=== PATIENT | male | born 1935 | race Caucasian/White ===

== ENCOUNTER 2021-10-29 00:18 | Day surgery (SDC) | payer MEDICARE, SELFPAY ==
[2021-10-17 14:48] VITALS: BMI 22.4
--- NOTE | 2021-10-28 13:40 | WPDANESEPP ---
Anes - Eval Pre Procedure Procedure: Operation Date: 10/29/21 14:00 Proposed Procedures p Colonoscopy - Clif Garrison MD Date/Time: 10/28/21 13:40 Pre Op Diagnosis: diarrhea Patient Data Age: 86 Gender: M Height: 1.68 m Weight: 63 kg Allergies Allergy/AdvReac Type Severity Reaction Status Date / Time hydrocodone Allergy Unknown unknown Verified 10/17/21 14:42 venom-honey bee Allergy Unknown Unknown Verified 10/17/21 14:42 venom-wasp Allergy Unknown unknown Verified 10/17/21 14:42 Home Medications Medication Instructions Recorded Confirmed Type albuterol sulfate 90 mcg/actuation 2 puff INHALATION .4-6 PRN gm 09/15/19 10/17/21 History aerosol inhaler amlodipine 10 mg tablet 10 mg PO DAILY 09/15/19 10/17/21 History aspirin 81 mg tablet,delayed 81 mg PO DAILY 09/15/19 10/17/21 History release atorvastatin 20 mg tablet 20 mg PO DAILY 09/15/19 10/17/21 History budesonide-formoterol HFA 160 2 puff INHALATION Q12H 09/15/19 10/17/21 History mcg-4.5 mcg/actuation aerosol inhaler epinephrine 0.3 mg/0.3 mL 0.3 mg IM ONCE 09/15/19 10/17/21 History injection, auto-injector isosorbide mononitrate 60 mg 60 mg PO DAILY 09/15/19 10/17/21 History tablet,extended release 24 hr lisinopril 40 mg tablet 40 mg PO DAILY 09/15/19 10/17/21 History metoprolol succinate 25 mg 25 mg PO DAILY 09/15/19 10/17/21 History tablet,extended release 24 hr tamsulosin 0.4 mg capsule 0.4 mg PO DAILY #90 cap 05/02/20 10/17/21 Rx omeprazole 40 mg capsule,delayed 40 mg PO DAILY #90 cap 07/18/20 10/17/21 Rx release finasteride 5 mg tablet 5 mg PO DAILY #90 tablet 11/28/20 10/17/21 Rx nitroglycerin 0.4 mg sublingual 0.4 mg SUBLINGUAL Q5M PRN #20 05/11/21 10/17/21 Rx tablet tablet Patient hx anesthesia problems: none Family hx anesthesia problems: none Results Review: All pre-operative results and documents have been reviewed as part of the pre-operative evaluation. [facility] Past Medical History Medical History (Updated 10/28/21 @ 13:39 by Alea Jane CRNA) Abdominal aneurysm Accelerated essential hypertension Cataracts, bilateral COPD (chronic obstructive pulmonary disease) Hyperlipidemia Lung cancer Myocardial infarction Tobacco abuse quit 2010 Surgical History Surgical History (Updated 10/28/21 @ 13:40 by Alea Jane CRNA) History of AAA (abdominal aortic aneurysm) repair 2007 at [facility] History of coronary angioplasty 2010 History of hemorrhoidectomy Family History Family History Mother Acute myocardial infarction, Onset Age: 83 Patient's mother is Father Patient's father is Acute myocardial infarction Sibling Patient's sister is Acute myocardial infarction Other Family history of cardiovascular disease Family history of lupus erythematosus Family history of primary malignant neoplasm of liver Hypertension Social History Social History Smoking packs per day: 1 Smoking cigarettes per day: 20.0 Years smoked: 74 Smoking pack-years: 74.00 Smoking status: Current every day smoker Tobacco type: cigarettes Second hand tobacco smoke exposure: No Smoking end date: 08/25/10 Alcohol intake: never Substance use: never Substance use type: does not use Living arrangements: with family Spiritual care concerns: No Exam Day of Procedure 10/28/21 13:40
[2021-10-29 12:00] VITALS: BMI 21.9
[2021-10-29 12:13] VITALS: BP 144/74; PULSE 56; RESP 18; TEMP 36.2; O2SAT 97
[2021-10-29] MEDS: LACTATED RINGERS 1,000 ML 150 ML IV CONT (12:23)
--- NOTE | 2021-10-29 12:42 | WPDANESEFPP ---
Anes - Eval Final PreProcedure Day of Procedure 10/29/21 12:42 Patient weight: normal Heart: regular rate and rhythm Lungs: clear to auscultation and normal air movement Airway: Mallampati scale class II Neurological: alert and oriented Last oral intake: >/= 8 hours ASA classification: III Emergent: no Anesthetic plan: proceed Anesthesia type and monitoring: general GIVS and standard monitoring Results Review: All pre-operative results and documents have been reviewed as part of the pre-operative evaluation. Informed Consent: The patient's anesthetic plan and its attendant risks and benefits were discussed with the patient/family/POA. Questions were solicited and answers provided to the satisfaction of the patient/family/POA.
--- NOTE | 2021-10-29 12:45 | PM.HPGS ---
History of Present Illness History of Present Illness Consent: Risks, benefits, and alternatives have been discussed and questions answered. Patient agrees to proceed with procedure. Chief complaint: diarrhea Narrative: Sachin Allen is a 86 year old male with lung cancer s/p xrt, last month noted anal leakage but his bowel movements normal otherwise, had colonoscopy ~ 6 years ago with polyps. He also is worried about with advanced dementia. Review of Systems Constitutional: Constitutional: Denies headache(s) and Denies weakness Eyes: Eyes: Denies blurry vision ENT: Reports Normal hearing present, Denies headache(s) and Denies neck pain Cardiovascular: Cardiovascular: Denies chest pain and Denies dyspnea Respiratory: Respiratory: Denies dyspnea Gastrointestinal: Gastrointestinal: Reports no additional gastrointestinal complaints Genitourinary: Genitourinary: Denies dysuria Musculoskeletal: Musculoskeletal: Denies neck pain Integumentary/Breasts: Skin/Breast: Denies dry skin Neurologic: Reports Normal hearing present, Denies headache(s) and Denies weakness Psychiatric: Psychiatric: Denies anxiety Endocrine: Endocrine: Denies change in body appearance Hematologic/Lymphatic: Hematologic/Lymphatic: Denies easy bleeding Allergic/Immunologic: Allergic/Immunologic: Denies urticaria PMFSH Past Medical History Medical History (Updated 10/29/21 @ 12:46 by Clif Garrison MD) Abdominal aneurysm Accelerated essential hypertension Cataracts, bilateral COPD (chronic obstructive pulmonary disease) Fecal smearing Hyperlipidemia Lung cancer Myocardial infarction Tobacco abuse quit 2010 Surgical History Surgical History (Updated 10/28/21 @ 13:40 by Alea Jane CRNA) History of AAA (abdominal aortic aneurysm) repair 2007 at [facility] History of coronary angioplasty 2010 History of hemorrhoidectomy Family History Family History Mother Acute myocardial infarction, Onset Age: 83 Patient's mother is Father Patient's father is Acute myocardial infarction Sibling Patient's sister is Acute myocardial infarction Other Family history of cardiovascular disease Family history of lupus erythematosus Family history of primary malignant neoplasm of liver Hypertension Social History Social History Smoking packs per day: 1 Smoking cigarettes per day: 20.0 Years smoked: 74 Smoking pack-years: 74.00 Smoking status: Current every day smoker Tobacco type: cigarettes Second hand tobacco smoke exposure: No Smoking end date: 08/25/10 Alcohol intake: never Substance use: never Substance use type: does not use Living arrangements: with family Spiritual care concerns: No Meds Home Medications and Allergies Home Medications Medication Instructions Recorded Confirmed Type albuterol sulfate 90 mcg/actuation 2 puff INHALATION .4-6 PRN gm 09/15/19 10/29/21 History aerosol inhaler amlodipine 10 mg tablet 10 mg PO DAILY 09/15/19 10/29/21 History aspirin 81 mg tablet,delayed 81 mg PO DAILY 09/15/19 10/29/21 History release atorvastatin 20 mg tablet 20 mg PO DAILY 09/15/19 10/29/21 History budesonide-formoterol HFA 160 2 puff INHALATION Q12H 09/15/19 10/29/21 History mcg-4.5 mcg/actuation aerosol inhaler epinephrine 0.3 mg/0.3 mL 0.3 mg IM ONCE 09/15/19 10/29/21 History injection, auto-injector isosorbide mononitrate 60 mg 60 mg PO DAILY 09/15/19 10/29/21 History tablet,extended release 24 hr lisinopril 40 mg tablet 40 mg PO DAILY 09/15/19 10/29/21 History metoprolol succinate 25 mg 25 mg PO DAILY 09/15/19 10/29/21 History tablet,extended release 24 hr tamsulosin 0.4 mg capsule 0.4 mg PO DAILY #90 cap 05/02/20 10/29/21 Rx omeprazole 40 mg capsule,delayed 40 mg PO DAILY #90 cap 11
[2021-10-29 13:15] VITALS: BP 107/63; PULSE 72; RESP 19; O2SAT 98
[2021-10-29 13:25] VITALS: BP 122/72; PULSE 67; RESP 21; O2SAT 96
[2021-10-29 13:35] VITALS: BP 140/67; PULSE 58; RESP 21; O2SAT 97
== END 2021-10-29 13:53 | disposition home or self-care (01) ==
PROVIDERS: PCP Internal Medicine; Visit Provider Internal Medicine Gastroenterology
PROC: 0DJD8ZZ Inspection of Lower Intestinal Tract, Via Natural or Artificial Opening Endoscopic (ICD-10-PCS; CPT 45378; principal; 2021-10-29 14:00)
DX: R15.1 Fecal smearing (principal); D12.0 Benign neoplasm of cecum; D12.2 Benign neoplasm of ascending colon; D12.3 Benign neoplasm of transverse colon; D12.8 Benign neoplasm of rectum; K57.30 Diverticulosis of large intestine without perforation or abscess without bleeding; K64.8 Other hemorrhoids; E78.5 Hyperlipidemia, unspecified; I10 Essential (primary) hypertension; J44.9 Chronic obstructive pulmonary disease, unspecified; I25.2 Old myocardial infarction; H26.9 Unspecified cataract; Z85.118 Personal history of other malignant neoplasm of bronchus and lung; Z87.891 Personal history of nicotine dependence; Z79.51 Long term (current) use of inhaled steroids; Z79.82 Long term (current) use of aspirin
CPT/HCPCS: 45385; 88305; J2704; J7120